=== PATIENT | female | born 1935 | race Caucasian/White ===

== ENCOUNTER → 2016-07-01 | Outpatient (CLI) | payer BC ==
[~2016-07-01] MED LIST: APIX1TAB PO; ASPCH81X PO; BNC/20125 PO; CALCIUM + D600 M1 PO; CALCTAB7 PO; CARV6.25 PO; CLBPO15 TOP; CRD200 PO; FISH OI1 OR; FLEC50TA20 PO; FURO-85 PO; LEVO75TA PO; LRT5 PO; METO25TA3 OR; MULT-513 PO; OMEP40CA41 OR; PRED-301 PO; PRLSR20 PO; SYN75 PO; ZOLE5INJ INJ; [UNRECOGNIZED DRUG - OTHER] PO
== END | disposition home or self-care (01) ==
LOC: C.PAPS 09:39
PROVIDERS: ATTEND Obstetrics & Gynecology
DX: Z01.419 Encounter for gynecological examination (general) (routine) without abnormal findings (principal); N95.2 Postmenopausal atrophic vaginitis

== ENCOUNTER 2016-09-24 20:54 | Inpatient (IN) | payer BC, OTHER ==
[~2016-09-24] VITALS: Ht 149.9 cm; Wt 55.6 kg
[~2016-09-24 20:54] MED LIST changes: -APIX1TAB PO; -CALCTAB7 PO; -CARV6.25 PO; -CLBPO15 TOP; -CRD200 PO; -FURO-85 PO; -LEVO75TA PO; -MULT-513 PO; -PRED-301 PO; -PRLSR20 PO; -ZOLE5INJ INJ
[2016-09-24] MEDS ORDERED: SODIUM CHLORIDE 0.9% 500ML 500 ML IV STA ×2 (21:19→21:49)
[2016-09-24] MEDS ORDERED: METOPROLOL TARTRATE 1 MG/ML VIAL IV STA (21:19)
--- NOTE | 2016-09-24 21:45 | DIAGNOSTIC IMAGING REPORT ---
CHEST ONE VIEW PORTABLE CLINICAL HISTORY: Atypical chest pain COMPARISON STUDY: November 2013 FINDINGS: There is borderline elevation right hemidiaphragm. The heart is normal in size. There is no failure. There is no focal pulmonary consolidation. There are no pleural effusions.[ IMPRESSION: No active disease in the chest. Electronically signed by: Heri Burnham M.D. 09/24/2016 9:44 PM Dictated Date/Time: 09/24/2016 9:43 PM
[2016-09-24 21:50] LABS: BUN/CREATININE RATIO 16.8 (10-20); CREATININE 1.5 mg/dl (0.60-1.20); MAGNESIUM 2.3 mg/dl (1.8-2.4); POTASSIUM 4.1 mmol/L (3.5-5.1)
[2016-09-24 22:00] LABS: ALB/GLOB RATIO 1.3 (0.9-2); CKMB/CK RATIO 4.9 (0-3.0); THYROID STIMULATING HORMONE 2.81 uIu/ml (0.300-4.500)
[2016-09-24] MEDS ORDERED: CLBPO15 TOP (22:03)
[2016-09-24] MEDS ORDERED: CALCTAB7 PO (22:03)
[2016-09-24] MEDS ORDERED: LEVO75TA PO (22:03)
[2016-09-24] MEDS ORDERED: PRLSR20 PO (22:03)
[2016-09-24] MEDS ORDERED: FURO-85 PO ×2 (22:03)
[2016-09-24] MEDS ORDERED: PRED-301 PO (22:03)
[2016-09-24] MEDS ORDERED: APIX1TAB PO (22:03)
[2016-09-24] MEDS ORDERED: ZOLE5INJ INJ (22:03)
[2016-09-24] MEDS ORDERED: MULT-513 PO (22:03)
[2016-09-24] MEDS ORDERED: CARV6.25 PO (22:03)
[2016-09-24 22:08] LABS: INR 1.1 (0.9-1.1); PROTHROMBIN TIME (PATIENT) 11.5 SECONDS (9.0-12.0)
[2016-09-24 22:33] LABS: HEMATOCRIT 38.7 % (37-47); MEAN CELL VOLUME 91.3 fL (80-100); MEAN CORPUSCULAR HEMOGLOBIN 31.4 pg (25-34); MEAN CORPUSCULAR HGB CONC 34.4 g/dl (32-36); MEAN PLATELET VOLUME 11.1 fL (7.4-10.4); PLATELET COUNT 99 K/uL (130-400); RED BLOOD COUNT 4.24 M/uL (4.2-5.4); WHITE BLOOD COUNT 5.62 K/uL (4.8-10.8)
[2016-09-24] MEDS ORDERED: ONDANSETRON INJ 2 MG/ML 2 ML VIAL IV PRN (23:30)
--- NOTE | 2016-09-24 23:49 | EMERGENCY ROOM VISIT NOTE ---
History Report prepared by Verna: Claudia Camacho Under the Supervision of: Dr. Figueroa Mayfield M.D. First contact with patient: 21:12 Chief Complaint: IRREGULAR HEARTBEAT Stated Complaint: AFIB,LOSING IT History of Present Illness The patient is a 81 year old female who presents to the Emergency Room with complaints of an episode of an irregular heartbeat starting this evening. The patient states that she felt that her heart beats really fast and that it comes in waves. She states that she is not having chest pain, but her chest feels uncomfortable. She states that she felt like she was going to pass out. The patient denies any back pain. The patient notes that she was going to have her heart be shocked about two months ago, but it went back in before they had to. The patient reports that she is feeling better now that she is here. The patient denies any heart catheterization or taking Aspirin. The patient states that she is in Eliquis. Source of History: patient Onset: evening Position: other (global) Quality: other (global) Timing: other (episode) Associated Symptoms: No back pain, No chest pain Note: The patient complains of uncomfortableness in her chest. Review of Systems See HPI for pertinent positives & negatives. A total of 10 systems reviewed and were otherwise negative. Past Medical & Surgical Medical Problems: (1) Atrial fibrillation Family History No pertinent family history Social History Smoking Status: Never Smoker Drug Use: none Marital Status: Occupation Status: retired Current/Historical Medications Scheduled Apixaban (Eliquis), 2.5 MG PO BID Calcium Carbonate-Vitamin D W/ (Caltrate 600 Plus), 1 TAB PO DAILY Carvedilol (Coreg), 6.25 MG PO BID Clobetasol Propionate (Clobetasol Propionate), 1 APPLN TOP UD Furosemide (Lasix), 40 MG PO MWF Furosemide (Lasix), 20 MG PO 4XWK Levothyroxine Sodium (Synthroid), 75 MCG PO DAILY Multivitamins/Minerals (Mvi With Minerals), 1 TAB PO DAILY Omeprazole (Prilosec), 20 MG PO DAILY Prednisone (Prednisone), 10 MG PO Q2D Prednisone (Prednisone), 7.5 MG PO Q2D Zoledronic Acid (Reclast), 1 DOSE INJ YEARLY Allergies Coded Allergies: Iodinated Contrast Media (Verified Allergy, Unknown, 0, 08/28/09) Sulfa Drugs (Verified Allergy, Unknown, 0, 08/28/09) Physical Exam Vital Signs Date Time Temp Pulse Resp B/P Pulse Ox O2 Delivery O2 Flow Rate FiO2 09/24/16 23:15 66 20 101/72 93 Room Air 09/24/16 22:46 62 16 141/77 95 Room Air 09/24/16 22:27 116 141/67 09/24/16 22:24 119 16 141/67 94 Room Air 09/24/16 22:09 116 16 133/72 95 Room Air 09/24/16 21:59 69 16 103/73 95 Room Air 09/24/16 21:45 123 21 95 09/24/16 21:43 88/65 09/24/16 21:40 77 17 138/73 09/24/16 21:37 94 Room Air 09/24/16 21:35 94 Room Air 09/24/16 21:35 136 19 92 09/24/16 21:30 141 19 99/78 93 09/24/16 21:27 103/71 09/24/16 21:25 145 17 09/24/16 21:20 140 16 09/24/16 21:15 143 09/24/16 21:02 36.3 144 16 115/83 98 Room Air Physical Exam GENERAL: Patient is mildly anxious appearing and in minimal distress. HEENT: No acute trauma, normocephalic atraumatic, mucous membranes moist, no nasal congestion, no scleral icterus. NECK: No stridor, no adenopathy, no meningismus, trachea is midline. LUNGS: No dyspnea. Clear to auscultation and equal bilaterally. No wheeze, no rhonchi. HEART: Regular rate and tachycardic rhythm. No murmurs, rubs, gallops appreciated. ABDOMEN: Soft, nontender, bowel sounds positive, no masses appreciated, no peritonitis. BACK: No midline tenderness, no CVA tenderness EXTREMITIES: Normal motion all extremities, no cyanosis, +1 edema bilaterally in ankles. NEUROLOGIC: Alert and oriented, no acute motor or sensory deficits, no focal weakness, cranial nerves grossly intact. SKIN: No rash, no jaundice, no diaphoresis. Medical Decision & Procedures ER Provider Diagnostic Interpretation: Radiology results and stated below per my review and radiologist interpretation: CHEST ONE VIEW PORTABLE CLINICAL HISTORY: Atypical chest pain COMPARISON STUDY: November 2013 FINDINGS: There is borderline elevation right hemidiaphragm. The heart is normal in size. There is no failure. There is no focal pulmonary consolidation. There are no pleural effusions.[ IMPRESSION: No active disease in the chest. Electronically signed by: Heri Burnham M.D. 09/24/2016 9:44 PM Dictated Date/Time: 09/24/2016 9:43 PM Laboratory Results 09/24/16 21:15 09/24/16 21:15 Test 09/24/16 21:15 09/24/16 21:50 09/24/16 23:27 Red Blood Count 4.24 M/uL (4.2-5.4) Mean Corpuscular Volume 91.3 fL (80-100) Mean Corpuscular Hemoglobin 31.4 pg (25-34) Mean Corpuscular Hemoglobin Concent 34.4 g/dl (32-36) RDW Standard Deviation 56.5 fL (36.4-46.3) RDW Coefficient of Variation 16.9 % (11.5-14.5) Mean Platelet Volume 11.1 fL (7.4-10.4) Anion Gap 7.0 mmol/L (3-11) Est Creatinine Clear Calc Drug Dose 22.5 ml/min Estimated GFR () 38.0 Estimated GFR (Non- 32.8 BUN/Creatinine Ratio 16.8 (10-20) Calcium Level 9.0 mg/dl (8.5-10.1) Magnesium Level 2.3 mg/dl (1.8-2.4) Total Bilirubin 0.5 mg/dl (0.2-1) Aspartate Amino Transf (AST/SGOT) 37 U/L (15-37) Alanine Aminotransferase (ALT/SGPT) 39 U/L (12-78) Alkaline Phosphatase 45 U/L (45-117) Total Protein 6.6 gm/dl (6.4-8.2) Albumin 3.7 gm/dl (3.4-5.0) Globulin 2.9 gm/dl (2.5-4.0) Albumin/Globulin Ratio 1.3 (0.9-2) Thyroid Stimulating Hormone (TSH) 2.810 uIu/ml (0.300-4.500) Prothrombin Time 11.5 SECONDS (9.0-12.0) Prothromb Time International Ratio 1.1 (0.9-1.1) Activated Partial Thromboplast Time 25.5 SECONDS (21.0-31.0) Partial Thromboplastin Ratio 1.0 Creatine Kinase MB Ratio (0-3.0) Laboratory results as reviewed by me. Medications Administered Medications (Trade) Dose Ordered Sig/Dawn Route Start Time Stop Time Status Last Admin Dose Admin Sodium Chloride (Nss 500ml) 500 ml @ 999 mls/hr Q31M STAT IV 09/24/16 21:19 09/24/16 21:49 DC 09/24/16 21:30 999 MLS/HR Metoprolol Tartrate 5 mg 5 mg NOW STAT IV 09/24/16 21:19 09/24/16 21:21 DC 09/24/16 22:27 5 MG Sodium Chloride (Nss 500ml) 500 ml @ 999 mls/hr Q31M STAT IV 09/24/16 21:49 09/24/16 22:19 DC 09/24/16 22:27 999 MLS/HR ECG Indication: palpitations Rate (beats per minute): 142 Rhythm: atrial flutter Findings: no acute ischemic change, other (no PVCs) ED Course 2020: The patient was evaluated in room C7. A complete history and physical exam was performed. 2118: Ordered Lopressor Iv 5 mg IV, NSS 500 ml @ 999 mls/hr IV. 2147: I revaluated the patient and the patient's blood pressure dropped to 88/ 60. I am giving her Ebulus of fluid. 2148: Ordered NSS 500 ml @ 999mls/hr IV. 2223: Discussed the patient's case Dr. Frank. The patient will be evaluated for further treatment and disposition. Medical Decision Differential: NSR, SVT, PACs, PVCs, Cardiac Dysrhythmia, Endocrine Dysfunction, Electrolyte/Metabolic Abnormality, Pulmonary Embolism, Infectious, GI, amongst other pathologies entertained. Pleasant 81 yr old female arrives tachycardic and hypotensive following near syncopal event. Notes feeling run down currently though denies any chest pain, shob, back pain, nausea, vomiting, nor further lightheadedness. Denies any headache nor neck pain during any of this. Given IV fluids with improvement of BP after 500ml-1L NSS bolus. With improvement in BP able to given IV lopressor. She is rapidly flipping in and out of what appears to be NSR with 1st av block to tachycardia which appears to be AFlutter RVR. There are definitively EKG change inferior-laterally which appear new. Completely asymptomatic with IV fluids. She does have mild ST elevation in III on one of the EKGs though without any symptoms I do not feel this meets criteria for heart alert nor emergent intervention. This elevation already improving on repeat EKG though some lateral t changes noted again. Already on Eliquis thus will defer heparin decision to hospitalist. Labs OK though suspect some underlying dehydration. Will bring in to hospitalist service for further management/treatment. With eliquis and symptoms I do not feel this is PE related. No symptoms of dissection currently. No evidence infectious etiology at this time. Consults Time Called: 2220 Consulting Physician: Dr. Frank Returned Call: [phone] Discussed the patient's case Dr. Frank. The patient will be evaluated for further treatment and disposition. Impression Primary Impression: Atrial flutter with rapid ventricular response Additional Impression: Hypotension Scribe Attestation The scribe's documentation has been prepared under my direction and personally reviewed by me in its entirety. I confirm that the note above accurately reflects all work, treatment, procedures, and medical decision making performed by me. Departure Information Dispostion Being Evaluated By Hospitalist Referrals Luther Hu DO (PCP) Patient Instructions My [facility] Problem Qualifiers Additional Impression: Hypotension Hypotension type: unspecified hypotension type Qualified Codes: I95.9 - Hypotension, unspecified
[2016-09-25] VITALS (8 sets, daily range): BP systolic 122–175; BP diastolic 66–82; PULSE 49–76; TEMP 36.5–37; O2SAT 94–97; Ht 149.9 cm; Wt 55.6 kg
[2016-09-25] MEDS ORDERED: METOPROLOL TARTRATE 1 MG/ML VIAL IV PRN (00:30)
[2016-09-25] MEDS ORDERED: ACETAMINOPHEN 325 MG TAB PO PRN (00:30)
[2016-09-25] MEDS ORDERED: NITROGLYCERIN 0.4 MG SL PER TAB CHARGE SL PRN (00:30)
[2016-09-25] MEDS ORDERED: CLOBETASOL PROPIONATE 0.05% OINT 15 GM TUBE EXT PRN (00:30)
[2016-09-25] MEDS ORDERED: HEPARIN 25000 UNIT/500 ML D5W ONE (00:36)
[2016-09-25] MEDS: SODIUM CHLORIDE 0.9% 1000ML 1,000 ML IV SCH ×2 (01:45→14:24)
[2016-09-25] MEDS ORDERED: HEPARIN 25,000 UNIT/500ML D5W 500 ML IV PRN (01:45)
--- NOTE | 2016-09-25 04:40 | History and Physical ---
History & Physical Date & Time of Service: September 25, 2016 at 04:16. The patient was examined on 09/24/2016. Chief Complaint: Acs, Sinus Brachycardia-Tachycardia Syndrome Primary Care Physician: Oswaldo Mari M.D. History of Present Illness Source: patient, spouse The patient is a 81-year-old female who presents to the emergency department with complaints of palpitations accompanied by lightheadedness and nausea. She and her report that her symptoms began about 1 1/2 weeks ago, when the palpitations were of brief duration and isolated. As the time progressed since then, her palpitations have become more pronounced in both frequency and intensity, in particular over the past 24-36 hours, and are now accompanied by lightheadedness and nausea. She reports that her symptoms come in waves, where her heart rate will speed up for a while, and then slow back down to a normal pace. She feels better lying down when these symptoms occur. She has not had any recent travels, any sick exposures, any change in diet, any change in sleep pattern. She does have a history of atrial fibrillation, for which she is on Eliquis, but her symptoms have never been this severe. Family History No pertinent family history Social History Smoking Status: Never Smoker Smokeless Tobacco Use: No Alcohol Use: none Drug Use: none Marital Status: Housing status: lives with family Occupational Status: retired Immunizations History of Influenza Vaccine: Yes History of Tetanus Vaccine?: Yes Tetanus Immunization Date: Aug 28, 2006 History of Pneumococcal: Yes History of Hepatitis B Vaccine: Unknown Multi-Drug Resistant Organisms History of MDRO: No Allergies Coded Allergies: Iodinated Contrast Media (Verified Allergy, Unknown, 0, 08/28/09) Sulfa Drugs (Verified Allergy, Unknown, 0, 08/28/09) Home Medications Scheduled Apixaban (Eliquis), 2.5 MG PO BID Calcium Carbonate-Vitamin D W/ (Caltrate 600 Plus), 1 TAB PO DAILY Carvedilol (Coreg), 6.25 MG PO BID Clobetasol Propionate (Clobetasol Propionate), 1 APPLN TOP UD Furosemide (Lasix), 40 MG PO MWF Furosemide (Lasix), 20 MG PO 4XWK Levothyroxine Sodium (Synthroid), 75 MCG PO DAILY Multivitamins/Minerals (Mvi With Minerals), 1 TAB PO DAILY Omeprazole (Prilosec), 20 MG PO DAILY Prednisone (Prednisone), 10 MG PO Q2D Prednisone (Prednisone), 7.5 MG PO Q2D Zoledronic Acid (Reclast), 1 DOSE INJ YEARLY Review of Systems The patient denies shortness of breath, cough, lower extremity swelling, vision change, hearing change, sore throat, fevers, chills, sweats, weight change, fatigue, vomiting, abdominal pain, pelvic pain, blood in urine or stool, dysuria , urinary frequency or urgency, lightheadedness, dizziness, headache, memory loss, rash, abnormal bruising or bleeding, imbalance, focal weakness, numbness or tingling in arms or legs, arthralgias or myalgias, back or neck pain, night sweats, or allergy symptoms. The review of systems is otherwise negative other than for that already noted above, and at least 10 systems have been reviewed. Physical Exam Vital Signs Date Time Temp Pulse Resp B/P Pulse Ox O2 Delivery O2 Flow Rate FiO2 09/25/16 03:59 36.7 57 18 138/73 94 Room Air 09/25/16 01:06 36.5 60 18 175/82 Room Air 09/25/16 00:30 121 18 98/67 95 Room Air 09/24/16 23:55 114 19 93 09/24/16 23:54 107/76 09/24/16 23:50 112 16 92 09/24/16 23:46 80/60 09/24/16 23:45 65 13 92 09/24/16 23:40 125 16 95 09/24/16 23:35 124 15 92 09/24/16 23:31 83/63 09/24/16 23:30 127 17 94 09/24/16 23:25 67 16 92 09/24/16 23:20 64 18 94 09/24/16 23:16 101/72 09/24/16 23:15 69 16 94 09/24/16 23:15 66 20 101/72 93 Room Air 09/24/16 23:10 124 17 92 09/24/16 23:05 129 17 93 09/24/16 23:01 115/62 09/24/16 23:00 64 17 93 09/24/16 22:57 128/75 09/24/16 22:55 65 15 93 09/24/16 22:50 64 15 94 09/24/16 22:46 141/77 09/24/16 22:46 62 16 141/77 95 Room Air 09/24/16 22:45 63 19 95 09/24/16 22:40 66 18 141/68 09/24/16 22:30 129 21 92 09/24/16 22:27 116 141/67 09/24/16 22:25 74 15 96 09/24/16 22:24 119 16 141/67 94 Room Air 09/24/16 22:20 114 17 94 09/24/16 22:16 141/67 09/24/16 22:15 71 16 95 09/24/16 22:10 130 15 94 09/24/16 22:09 116 16 133/72 95 Room Air 09/24/16 22:09 133/72 09/24/16 22:05 93 17 94 09/24/16 22:01 103/73 09/24/16 22:00 70 16 93 09/24/16 21:59 69 16 103/73 95 Room Air 09/24/16 21:55 69 19 09/24/16 21:51 156/77 09/24/16 21:50 110 20 96 09/24/16 21:45 123 21 95 09/24/16 21:43 88/65 09/24/16 21:40 77 17 138/73 09/24/16 21:37 94 Room Air 09/24/16 21:35 94 Room Air 09/24/16 21:35 136 19 92 09/24/16 21:30 141 19 99/78 93 09/24/16 21:27 103/71 09/24/16 21:25 145 17 09/24/16 21:20 140 16 09/24/16 21:15 143 09/24/16 21:02 36.3 144 16 115/83 98 Room Air The patient is awake, well-developed and adequately nourished, alert and oriented 3, normocephalic and atraumatic, lying in bed and in mild acute distress during episodes of increased heart rate while in the ED. HEENT--PERRL, EOMI, mucous membranes and oropharynx dry. Neck--supple, no JVD or bruits, thyroid normal, trachea midline, no adenopathy. Heart--cyclical examination from normal sinus rhythm to premature contractions to tachycardia with regular rhythm. Lungs--clear bilaterally with good air movement, no respiratory distress, no accessory muscle use. Abdomen--normal bowel sounds and soft, nontender and nondistended, no hernias or masses, no organomegaly. Extremities--no cyanosis, clubbing or edema. There are good distal pulses b/l. Dermatologic--normal skin turgor, normal color, warm and dry, no abnormal lymph nodes, no rash. Neurologic--cranial nerves II through XII grossly intact, motor and sensory examination normal. Rheumatologic--normal range of motion, nontender, muscles and joints. Psychiatric--normal affect. Diagnostics Laboratory Results Results Past 24 Hours Test 09/24/16 21:15 09/24/16 21:50 09/24/16 23:50 Range/Units White Blood Count 5.62 4.8-10.8 K/uL Red Blood Count 4.24 4.2-5.4 M/uL Hemoglobin 13.3 12.0-16.0 g/dL Hematocrit 38.7 37-47 % Mean Corpuscular Volume 91.3 80-100 fL Mean Corpuscular Hemoglobin 31.4 25-34 pg Mean Corpuscular Hemoglobin Concent 34.4 32-36 g/dl RDW Standard Deviation 56.5 36.4-46.3 fL RDW Coefficient of Variation 16.9 11.5-14.5 % Platelet Count 99 130-400 K/uL Mean Platelet Volume 11.1 7.4-10.4 fL Sodium Level 135 136-145 mmol/L Potassium Level 4.1 3.5-5.1 mmol/L Chloride Level 95 98-107 mmol/L Carbon Dioxide Level 33 21-32 mmol/L Anion Gap 7.0 3-11 mmol/L Blood Urea Nitrogen 25 7-18 mg/dl Creatinine 1.50 0.60-1.20 mg/dl Est Creatinine Clear Calc Drug Dose 22.5 ml/min Estimated GFR () 38.0 Estimated GFR (Non- 32.8 BUN/Creatinine Ratio 16.8 10-20 Random Glucose 137 70-99 mg/dl Calcium Level 9.0 8.5-10.1 mg/dl Magnesium Level 2.3 1.8-2.4 mg/dl Total Bilirubin 0.5 0.2-1 mg/dl Aspartate Amino Transf (AST/SGOT) 37 15-37 U/L Alanine Aminotransferase (ALT/SGPT) 39 12-78 U/L Alkaline Phosphatase 45 45-117 U/L Total Creatine Kinase 99 70 26-192 U/L Creatine Kinase MB 4.9 3.5 0.5-3.6 ng/ml Creatine Kinase MB Ratio 4.9 5.0 0-3.0 Troponin I 0.029 0.050 0-0.045 ng/ml Total Protein 6.6 6.4-8.2 gm/dl Albumin 3.7 3.4-5.0 gm/dl Globulin 2.9 2.5-4.0 gm/dl Albumin/Globulin Ratio 1.3 0.9-2 Thyroid Stimulating Hormone (TSH) 2.810 0.300-4.500 uIu/ml Prothrombin Time 11.5 9.0-12.0 SECONDS Prothromb Time International Ratio 1.1 0.9-1.1 Activated Partial Thromboplast Time 25.5 21.0-31.0 SECONDS Partial Thromboplastin Ratio 1.0 Diagnostic Radiology Patient Name: AJ CORDERO Unit Number: [id number] Dictated: 09/24/162142 Transcribed: 09/24/162142 ARG Printed Date/Time: [~ rep prt dt]/[~ rep prt tm] [~ rep ct labl] - [~ rep ct ivnm] [facility] [place] [address] Dictated: 09/24/162142 Transcribed: 09/24/162142 ARG Printed Date/Time: [~ rep prt dt]/[~ rep prt tm] [~ rep ct labl] - [~ rep ct ivnm] CHEST ONE VIEW PORTABLE CLINICAL HISTORY: Atypical chest pain COMPARISON STUDY: November 2013 FINDINGS: There is borderline elevation right hemidiaphragm. The heart is normal in size. There is no failure. There is no focal pulmonary consolidation. There are no pleural effusions.[ IMPRESSION: No active disease in the chest. Electronically signed by: Heri Burnham M.D. 09/24/2016 9:44 PM Dictated Date/Time: 09/24/2016 9:43 PM The status of this report is Signed. Draft = Not yet reviewed or approved by Radiologist. Signed = Reviewed and approved by Radiologist. <AttendingPhy></AttendingPhy> <FamilyPhy>Luther Hu, </FamilyPhy> < PrimaryPhy>Oswaldo Mari M.D.</PrimaryPhy> <UnitNumber>[id number]</ UnitNumber> <VisitNumber>[id number]</VisitNumber> <PatientName>AJ CORDERO</ PatientName> <DateOfBirth>1935</DateOfBirth> <Location>[facility]</Location> < ServiceDate>09/24/16</ServiceDate> <MNE>ESINDI</MNE> <OrderingPhy>No Doctor, Assigned</OrderingPhy> <OrderingPhyMNE>f rep ord dr vasquez</OrderingPhyMNE> < DictatingPhyMNE>f rep dict dr vasquez</DictatingPhyMNE> <CCListMNE>f rep ct rebekahe</ CCListMNE> <AdmittingPhyMNE>f pt admit dr vasquez</AdmittingPhyMNE> <AttendingPhyMNE >f pt attend dr vasquez</AttendingPhyMNE> <ConsultingPhyMNE>f pt consult dr vasquez</ConsultingPhyMNE> <FamilyPhyMNE>f pt fam dr vasquez</FamilyPhyMNE> <OtherPhyMNE>f pt other dr vasquez</OtherPhyMNE> < PrimaryPhyMNE>f pt prim care dr vasquez</PrimaryPhyMNE> <ReferringPhyMNE>f pt referring dr vasquez</ReferringPhyMNE> EKG EKG #1 shows sinus tachycardia at 150 bpm, with no acute ST-T changes. EKG #2 shows normal sinus rhythm at 80 bpm, with ST elevation 1 mm in lead III, and 1/2 mm in aVF, and trace elevation in V5 and V6. EKG #3 shows normal sinus rhythm at 66 bpm, with the same ST elevations, and now shows reciprocal ST segment depression and T-wave inversion in leads I and aVL. Impression Assessment and Plan Acute coronary syndrome/tachybradycardia syndrome--the patient will be admitted to the telemetry unit for serial cardiac enzymes, cardiac rhythm monitoring and a 2-D echocardiogram with Dopplers. We will hold Eliquis 2.5 mg by mouth twice a day, and start heparin IV standard dose per protocol. Continue carvedilol 6.25 mg by mouth twice a day, hold furosemide, and gently hydrate with normal saline IV fluid. We'll consult cardiology, and would be concerned about possible RCA occlusion causing these symptoms. Her initial troponin was nondetectable. We did discuss tachybradycardia syndrome, and possible need for a pacemaker. Acute Renal insufficiency--creatinine was 1.5 on admission laboratories. Hold furosemide. We'll hydrate with normal saline at 80 ML's per hour, and repeat BMP and magnesium levels in the a.m. Thrombocytopenia--99 upon admission. Her platelets will need to be followed closely while on treatment. Hyperglycemia--blood sugar was 137 on admission. We'll check a hemoglobin A1c. GERD--change omeprazole 20 mg by mouth daily to pantoprazole 40 mg by mouth daily. Hypothyroidism--continue levothyroxine sodium at 75 g by mouth daily. Chronic Prednisone use--she has been taking 10 mg alternating with 7.5 mg. For now, we'll place on 10 mg by mouth twice a day for stress dose. Level of Care Telemetry Advanced Directives Existing Advance Directive: No Existing Living Will: No Existing Power of Cold Working Inspector: Yes Resuscitation Status FULL RESUSCITATION VTE Prophylaxis VTE Risk Assessment Done? Y/N: Yes Risk Level: Moderate Given or contraindicated: Other Anticoagulation (heparin IV standard dose per weight-based protocol.)
[2016-09-25] MEDS: LEVOTHYROXINE 75 MCG TAB PO SCH (06:20)
[2016-09-25 06:28] LABS: HEMATOCRIT 34.9 % (37-47); MEAN CELL VOLUME 91.8 fL (80-100); MEAN CORPUSCULAR HEMOGLOBIN 30.5 pg (25-34); MEAN CORPUSCULAR HGB CONC 33.2 g/dl (32-36); WHITE BLOOD COUNT 3.46 K/uL (4.8-10.8)
[2016-09-25 06:44] LABS: MEAN PLATELET VOLUME 11.4 fL (7.4-10.4); PLATELET COUNT 75 K/uL (130-400)
[2016-09-25 06:45] LABS: INR 1.1 (0.9-1.1); PARTIAL THROMBOPLASTIN RATIO 2.3; PROTHROMBIN TIME (PATIENT) 11.7 SECONDS (9.0-12.0)
[2016-09-25 06:52] LABS: BASO % 0.3 %; BASO ABS # 0.01 K/uL (0-0.2); COMPLETE YES; EOS % 0.9 %; LYMPH % 30.6 %; LYMPH ABS # 1.06 K/uL (1.2-3.4); MONO % 10.4 %; NEUT % 57.8 %
[2016-09-25 07:06] LABS: CKMB/CK RATIO 4.9 (0-3.0)
[2016-09-25 07:08] LABS: BUN/CREATININE RATIO 20.2 (10-20); CALCIUM 7.6 mg/dl (8.5-10.1); CREATININE 1.2 mg/dl (0.60-1.20); MAGNESIUM 2.2 mg/dl (1.8-2.4); POTASSIUM 3.7 mmol/L (3.5-5.1)
[2016-09-25 08:24] LABS: ESTIMATED AVERAGE GLUCOSE 123 mg/dl; HA1C FLAG Normal (Normal)
--- NOTE | 2016-09-25 08:31 | ECHOCARDIOGRAM REPORT ---
*NOTICE TO RECEIVING CONSTITUTION PARTY AGENCY This information is strictly Confidential and protected under [place] law. [place] law prohibits you from making any further disclosure of this information unless further disclosure is expressly permitted by the written consent of the person to whom it pertains or is authorized by law. A general authorization for the release of medical or other information is not sufficient for this purpose. Hospital accepts no responsibility if the information is made available to any other person, INCLUDING THE PATIENT. Interpretation Summary * Name: AJ CORDERO Study Date: 09/25/2016 06:25 AM BP: 138/73 mmHg * Patient Location: C.2E\S\E211\S\1 HR: 48 * : 1935 (M/d/yyyy) Gender: Female Height: 59 in * Age: 81 yrs Ethnicity: CA Weight: 115 lb * Ordering Physician: Naeem Frank * Referring Physician: Self, Referred * Performed By: Audra Oliva RCS * * Reason For Study: ELEVATED TROPONIN * BSA: 1.5 m2 * -- Conclusions -- * The left ventricle is grossly normal size. * There is mild concentric left ventricular hypertrophy. * The basal septum is thickened and angulated consistent with sigmoid septum. * Prominent and thick Papillary muscle. * The left ventricular wall motion is normal. * The right ventricle is normal in size and function. * The right ventricular systolic function is normal as assessed by tricuspid annular plane systolic excursion (TAPSE) (normal >1.5 cm). * The left atrium is moderately dilated. * The aortic valve is trileaflet. * Mild aortic regurgitation. * Diastolic dysfunction, Grade II (pseudonormalization pattern). * E to e' ratio =15 Procedure Details * A complete two-dimensional transthoracic echocardiogram was performed (2D, M-mode, Doppler and color flow Doppler). Left Ventricle * The left ventricle is grossly normal size. * There is mild concentric left ventricular hypertrophy. * The basal septum is thickened and angulated consistent with sigmoid septum. * Ejection Fraction = 50-55%. * Prominent and thick Papillary muscle. * The left ventricular wall motion is normal. Right Ventricle * The right ventricle is normal in size and function. * The right ventricular systolic function is normal as assessed by tricuspid annular plane systolic excursion (TAPSE) (normal >1.5 cm). Atria * The left atrium is moderately dilated. * Right atrial size is normal. Mitral Valve * The mitral valve is grossly normal. * There is mild mitral regurgitation. Tricuspid Valve * The tricuspid valve is not well visualized, but is grossly normal. * There is mild tricuspid regurgitation. * Right ventricular systolic pressure is normal. Aortic Valve * The aortic valve is trileaflet. * Mild aortic regurgitation. Pulmonic Valve * The pulmonic valve is not well seen, but is grossly normal. * Mild pulmonic valvular regurgitation. * Normal PA diastolic pressure Great Vessels * The aortic root is normal size. Pericardium/Pleural * There is no pericardial effusion. Great Vessels * Normal inferior vena cava size and collapsability with sniff indicates a normal right atrial pressure of 3 mmHg Left Ventricular Diastolic Function * Diastolic dysfunction, Grade II (pseudonormalization pattern). * E to e' ratio =15 MMode 2D Measurements and Calculations IVSd 1.3 cm IVSs 1.7 cm LVIDd 3.8 cm LVIDs 2.4 cm LVPWd 0.94 cm LVPWs 1.1 cm IVS/LVPW 1.4 FS 38.3 % EDV(Teich) 63.9 ml ESV(Teich) 19.6 ml EF(Teich) 69.2 % EDV(cubed) 57.0 ml ESV(cubed) 13.4 ml EF(cubed) 76.5 % % IVS thick 29.5 % % LVPW thick 11.9 % LV mass(C)d 141.8 grams LV mass(C)dI 97.3 grams/m\S\2 LV mass(C)s 101.2 grams LV mass(C)sI 69.4 grams/m\S\2 SV(Teich) 44.2 ml SI(Teich) 30.3 ml/m\S\2 SV(cubed) 43.6 ml SI(cubed) 29.9 ml/m\S\2 Ao root diam 3.5 cm Ao root area 9.8 cm\S\2 LA dimension 3.2 cm LA/Ao 0.91 LVOT diam 2.0 cm LVOT area 3.3 cm\S\2 LVAd ap4 25.0 cm\S\2 LVLd ap4 6.9 cm EDV(MOD-sp4) 74.8 ml EDV(sp4-el) 77.3 ml LVAs ap4 14.9 cm\S\2 LVLs ap4 5.6 cm ESV(MOD-sp4) 33.5 ml ESV(sp4-el) 33.4 ml EF(MOD-sp4) 55.2 % EF(sp4-el) 56.9 % LVAd ap2 21.1 cm\S\2 LVLd ap2 6.7 cm EDV(MOD-sp2) 54.1 ml EDV(sp2-el) 55.9 ml LVAs ap2 14.0 cm\S\2 LVLs ap2 6.0 cm ESV(MOD-sp2) 26.8 ml ESV(sp2-el) 27.7 ml EF(MOD-sp2) 50.4 % EF(sp2-el) 50.5 % LVLd %diff -2.05 % EDV(MOD-bp) 64.0 ml LVLs %diff 5.7 % ESV(MOD-bp) 30.9 ml EF(MOD-bp) 51.7 % SV(MOD-sp4) 41.3 ml SI(MOD-sp4) 28.3 ml/m\S\2 SV(MOD-sp2) 27.3 ml SI(MOD-sp2) 18.7 ml/m\S\2 SV(MOD-bp) 33.1 ml SI(MOD-bp) 22.7 ml/m\S\2 SV(sp4-el) 44.0 ml SI(sp4-el) 30.2 ml/m\S\2 SV(sp2-el) 28.2 ml SI(sp2-el) 19.4 ml/m\S\2 Doppler Measurements and Calculations MV E max anne marie 93.3 cm/sec MV A max anne marie 86.8 cm/sec MV E/A 1.1 MV P1/2t max anne marie 101.1 cm/sec MV P1/2t 91.7 msec MVA(P1/2t) 2.4 cm\S\2 MV dec slope 322.9 cm/sec\S\2 MV dec time 0.25 sec Ao V2 max 77.0 cm/sec Ao max PG 2.4 mmHg Ao max PG (full) 0.35 mmHg TISH(V,A) 3.0 cm\S\2 TISH(V,D) 3.0 cm\S\2 AI max anne marie 401.4 cm/sec AI max PG 64.4 mmHg AI dec slope 154.7 cm/sec\S\2 AI P1/2t 759.9 msec LV V1 max PG 2.0 mmHg LV V1 max 71.2 cm/sec PA V2 max 55.9 cm/sec PA max PG 1.2 mmHg PI max anne marie 139.6 cm/sec PI max PG 7.8 mmHg PI dec slope 100.6 cm/sec\S\2 PI P1/2t 406.6 msec TR max anne marie 243.3 cm/sec
[2016-09-25] MEDS ORDERED: AMIODARONE IV BOLUS / DRIP IV STA (08:46)
[2016-09-25] MEDS ORDERED: CARVEDILOL 6.25 MG TAB PO SCH (09:00)
[2016-09-25] MEDS ORDERED: AMIODARONE / D5W 100 ML IV SCH (09:00)
[2016-09-25] MEDS ORDERED: AMIODARONE / D5W 200 ML IV ONE (09:10)
--- NOTE | 2016-09-25 09:38 | CARDIOLOGY CONSULTATION ---
DATE OF CONSULTATION: 09/25/2016 DATE OF CONSULTATION: 09/25/2016. REQUESTING: Dr. Frank. [employer]OT[employer] DINING ROOM CASHIER: Luther Hu D.O, [facility] Cardiology. REASON FOR CONSULTATION: Recurrent atrial arrhythmias including atrial fibrillation as well as an atrial fibrillation and atrial tachycardia. Dear Dr. Frank: Thank you for requesting cardiology consultation on Latonya with regards to her current atrial arrhythmias. She has had a history of atrial arrhythmias including an atrial tachycardia as well as atrial fibrillation. During our last visit on 08/29/2016 she was in atrial fibrillation with a controlled ventricular response and was relatively asymptomatic. We made a decision at that point for rate control strategy. She notes over the last week to 10 days she has had worsening palpitations, feeling her heart racing. It would last for brief episodes, although in the last 24-48 hours it was lasting longer and longer and with the episode she was having lightheadedness, dizziness, weakness and fatigue. She notes it would race for an extended period of time relatively fast and then stopped on its own. If you look at her EKGs from last evening at 2100 she has what appears to be a short RP long SD tachycardia at a rate of 142 beats per minute. When she is in sinus rhythm like she is this morning she feels well. She denies any chest pain or chest pressure and she had no chest pain or chest pressure at home. She notes she did not sleep well last night, but she is slowly feeling like she is back to herself. She notes over the last week she thought she was eating relatively well, although she did look dehydrated on her admission labs. She denies any lower extremity edema, symptoms of claudication. She denies any bleeding, bruising, dark stools or black stools on apixaban. As you know, she has chronic thrombocytopenia. The rest of review of systems otherwise negative. PAST MEDICAL HISTORY: 1. Paroxysmal atrial fibrillation. 2. Paroxysmal atrial tachycardia. 3. Polycystic kidney disease. 4. Polycystic liver disease. 5. Hypertension. 6. Hypothyroidism. 7. GERD. 8. History of hyperparathyroidism status post parathyroidectomy, 2 out of 4 parathyroid glands. 9. Heavily calcified splenic artery followed by Dr. Navas. 10. History of hyponatremia. 11. Chronic thrombocytopenia. 12. Polymyalgia rheumatica, on chronic steroids. SOCIAL HISTORY: Denies any tobacco or alcohol. She is . She taught high school math. FAMILY HISTORY: Grandfather had heart attack in his early 70s. She has a sister with atrial fibrillation. ALLERGIES: CONTRAST AND SULFA, INTOLERANCE TO MULTAQ WHICH CAUSES SEVERE HEADACHE. MEDICATIONS: Reviewed in electronic medical record. PHYSICAL EXAMINATION: GENERAL: She is awake, alert, oriented x3. She is in no acute distress this morning. VITAL SIGNS: Her heart rate is 49, her blood pressure 170/75, her pulse ox is 94% on room air. HEAD, EYES, EARS, NOSE, AND THROAT: 2+ carotid upstrokes, no evidence of carotid bruits. Jugular venous pressure appeared normal. Her sclerae is anicteric. Her hearing is normal. LUNGS: Clear to auscultation bilaterally. No rales, rhonchi or wheezing. HEART: Regular rate and rhythm with occasional ectopy. No appreciable murmurs, rubs or gallops. ABDOMEN: Soft, nontender, nondistended. Positive bowel sounds. EXTREMITIES: No clubbing, cyanosis or edema. PSYCHIATRIC: Affect appeared appropriate. DIAGNOSTIC STUDIES: EKGs normal sinus rhythm, ST-T changes, consider lateral ischemia which are not significantly different than her EKGs from the office. EKG 09/24/2016 at 2100 short RP, long SD tachycardia at a rate of 142 beats per minute with subtle ST elevation in the inferior lateral leads. The ST changes are not significantly different compared to her baseline in sinus rhythm. Her econometrics professor was reviewed in detail. LABORATORY STUDIES: Hemoglobin 11.6, platelet count of 75 this morning: Sodium 141, potassium 3.7, BUN 24, creatinine 1.2. Upon admission it was 25 and 1.5 with a sodium of 135. Her TSH is normal. Her troponin 0.05. The second one is 0.85. IMPRESSIONS: 1. Recurrent atrial arrhythmias including what appears to be an atrial tachycardia with a history of atrial fibrillation and atrial tachycardia and her EKG suggesting a short RP, long SD tachycardia. 2. Symptomatic with the short RP long SD tachycardia at 140 beats per minute including lightheadedness, shortness of breath and weakness. 3. Minimal troponin elevation, likely demand ischemia. 4. History of thrombocytopenia with a platelet count this morning on heparin of 75,000. 5. History of polycystic kidney disease and polycystic liver disease followed at the [facility] with concerned that her kidneys are pushing up on her diaphragm causing some degree of pulmonary compression. 6. Hypertension. 7. Bradycardia on carvedilol when in sinus rhythm. I made the following recommendations: 1. Load her with amiodarone 400 mg b.i.d. p.o. and IV drip per protocol. The drip will last for 24 hours, hopefully with loading her with IV amiodarone over 24 hours hopefully this will allow us to maintain sinus rhythm. 2. I would stop her heparin, it seems to be worsening her underlying platelet count. We made a decision with regards to apixaban as she is approaching the age of 82 and she is less than 60 kilograms and her creatinine was as high as 1.5 yesterday. We will have to watch her platelet count closely though given the potential risk of bleeding with AC and her thrombocytopenia. 3. I did read her echocardiogram, she appears of have normal biventricular size and function. There were no obvious regional wall motion abnormalities. She has mild valvular heart disease and her left atrium is moderately dilated. Even if she were to have CAD with her baseline EKG changes, given her labile platelet count and the the need for Plavix and apixaban I would treat any potential CAD with medical therapy. 4. We will stop her carvedilol as well. 5. I did discuss with her that there is a chance that she will have tachybrady syndrome as with her atrial tachycardia it is very fast and when she is in sinus rhythm on carvedilol she is relatively slow, therefore will hold her carvedilol. She may need additional blood pressure medication something like amlodipine, which will not affect her renal function. 6. My only other concern is that she had headaches from Multaq and it is possible she will have some cross reaction to amiodarone. If this were the case, the challenge will be the use of sotalol and Tikosyn and somewhat polycystic kidney disease and underlying renal dysfunction as they are both renally excreted. 7. As an outpatient, she had been on flecainide and flecainide was not maintaining sinus rhythm. Thank you for allowing us to participate in her care. We will continue to follow with you. All this was discussed with the nursing staff. KAVITA
[2016-09-25] MEDS: CALCIUM 600MG + VIT D 400 IU TAB PO SCH (09:46)
[2016-09-25] MEDS: PANTOprazole SOD 40 MG TAB PO SCH (09:46)
[2016-09-25] MEDS: CEROVITE ADV FORMULA TAB PO SCH (09:50)
[2016-09-25] MEDS: APIXABAN 2.5 MG TAB PO SCH ×2 (10:21→21:49)
[2016-09-25] MEDS: AMIODARONE 200 MG TAB PO SCH ×2 (10:21→20:54)
[2016-09-25] MEDS ORDERED: TRAZODONE HCL 50 MG TAB PO PRN (11:00)
[2016-09-25] MEDS: AMIODARONE / D5W 200 ML IV SCH (15:25)
--- NOTE | 2016-09-25 15:32 | Medical Student: [facility] ---
Med Student Progress Note Date of Service September 25, 2016. Subjective Pt evaluation today including: conversation w/ patient, physical exam, chart review, lab review, review of studies Pain: none PO Intake: full diet Voiding: no voiding problems patient reports feeling better overnight. she reports a few episodes of rapid heart rate and palpitations, but otherwise has not felt chest pain or shortness of breath. no new symptoms to report. she would like to be out of the hospital as soon as possible. Review of Systems Constitutional: No chills, No fever Respiratory: No cough, No shortness of breath, No sputum Cardiac: + palpitations, No chest pain, No orthopnea Abdomen: No nausea, No pain Objective Vital Signs Date Time Temp Pulse Resp B/P Pulse Ox O2 Delivery O2 Flow Rate FiO2 09/25/16 12:00 Room Air 09/25/16 11:29 36.8 62 18 122/67 97 Room Air 09/25/16 09:00 136/66 09/25/16 08:00 Room Air 09/25/16 07:21 36.5 49 20 170/75 94 Room Air 09/25/16 04:00 Room Air 09/25/16 03:59 36.7 57 18 138/73 94 Room Air 09/25/16 01:06 36.5 60 18 175/82 Room Air 09/25/16 00:30 121 18 98/67 95 Room Air 09/24/16 23:55 114 19 93 09/24/16 23:54 107/76 09/24/16 23:50 112 16 92 09/24/16 23:46 80/60 09/24/16 23:45 65 13 92 09/24/16 23:40 125 16 95 09/24/16 23:35 124 15 92 09/24/16 23:31 83/63 09/24/16 23:30 127 17 94 09/24/16 23:25 67 16 92 09/24/16 23:20 64 18 94 09/24/16 23:16 101/72 09/24/16 23:15 69 16 94 09/24/16 23:15 66 20 101/72 93 Room Air 09/24/16 23:10 124 17 92 09/24/16 23:05 129 17 93 09/24/16 23:01 115/62 09/24/16 23:00 64 17 93 09/24/16 22:57 128/75 09/24/16 22:55 65 15 93 09/24/16 22:50 64 15 94 09/24/16 22:46 141/77 09/24/16 22:46 62 16 141/77 95 Room Air 09/24/16 22:45 63 19 95 09/24/16 22:40 66 18 141/68 09/24/16 22:30 129 21 92 09/24/16 22:27 116 141/67 09/24/16 22:25 74 15 96 09/24/16 22:24 119 16 141/67 94 Room Air 09/24/16 22:20 114 17 94 09/24/16 22:16 141/67 09/24/16 22:15 71 16 95 09/24/16 22:10 130 15 94 09/24/16 22:09 116 16 133/72 95 Room Air 09/24/16 22:09 133/72 09/24/16 22:05 93 17 94 09/24/16 22:01 103/73 09/24/16 22:00 70 16 93 09/24/16 21:59 69 16 103/73 95 Room Air 09/24/16 21:55 69 19 09/24/16 21:51 156/77 09/24/16 21:50 110 20 96 09/24/16 21:45 123 21 95 09/24/16 21:43 88/65 09/24/16 21:40 77 17 138/73 09/24/16 21:37 94 Room Air 09/24/16 21:35 94 Room Air 09/24/16 21:35 136 19 92 09/24/16 21:30 141 19 99/78 93 09/24/16 21:27 103/71 09/24/16 21:25 145 17 09/24/16 21:20 140 16 09/24/16 21:15 143 09/24/16 21:02 36.3 144 16 115/83 98 Room Air Physical Exam General Appearance: WD/WN, no apparent distress ENT: hearing grossly normal, pharynx normal Neck: supple, no adenopathy, no JVD Respiratory/Chest: chest non-tender, lungs clear, normal breath sounds Cardiovascular: regular rate, rhythm, no edema, no gallop, no murmur Abdomen: normal bowel sounds, non tender, soft Extremities: non-tender, no pedal edema Neurologic/Psychiatric: alert, oriented x 3 Skin: normal color, no rash Laboratory Results Last 24 Hours Test 09/24/16 21:15 09/24/16 21:50 09/24/16 23:50 09/25/16 06:16 White Blood Count 5.62 K/uL 3.46 K/uL Red Blood Count 4.24 M/uL 3.80 M/uL Hemoglobin 13.3 g/dL 11.6 g/dL Hematocrit 38.7 % 34.9 % Mean Corpuscular Volume 91.3 fL 91.8 fL Mean Corpuscular Hemoglobin 31.4 pg 30.5 pg Mean Corpuscular Hemoglobin Concent 34.4 g/dl 33.2 g/dl RDW Standard Deviation 56.5 fL 57.8 fL RDW Coefficient of Variation 16.9 % 17.1 % Platelet Count 99 K/uL 75 K/uL Mean Platelet Volume 11.1 fL 11.4 fL Sodium Level 135 mmol/L 141 mmol/L Potassium Level 4.1 mmol/L 3.7 mmol/L Chloride Level 95 mmol/L 105 mmol/L Carbon Dioxide Level 33 mmol/L 31 mmol/L Anion Gap 7.0 mmol/L 5.0 mmol/L Blood Urea Nitrogen 25 mg/dl 24 mg/dl Creatinine 1.50 mg/dl 1.20 mg/dl Est Creatinine Clear Calc Drug Dose 22.5 ml/min 28.4 ml/min Estimated GFR () 38.0 49.8 Estimated GFR (Non- 32.8 43.0 BUN/Creatinine Ratio 16.8 20.2 Random Glucose 137 mg/dl 84 mg/dl Calcium Level 9.0 mg/dl 7.6 mg/dl Magnesium Level 2.3 mg/dl 2.2 mg/dl Total Bilirubin 0.5 mg/dl Aspartate Amino Transf (AST/SGOT) 37 U/L Alanine Aminotransferase (ALT/SGPT) 39 U/L Alkaline Phosphatase 45 U/L Total Creatine Kinase 99 U/L 70 U/L 87 U/L Creatine Kinase MB 4.9 ng/ml 3.5 ng/ml 4.3 ng/ml Creatine Kinase MB Ratio 4.9 5.0 4.9 Troponin I 0.029 ng/ml 0.050 ng/ml 0.085 ng/ml Total Protein 6.6 gm/dl Albumin 3.7 gm/dl Globulin 2.9 gm/dl Albumin/Globulin Ratio 1.3 Thyroid Stimulating Hormone (TSH) 2.810 uIu/ml Prothrombin Time 11.5 SECONDS 11.7 SECONDS Prothromb Time International Ratio 1.1 1.1 Activated Partial Thromboplast Time 25.5 SECONDS 60.6 SECONDS Partial Thromboplastin Ratio 1.0 2.3 Neutrophils (%) (Auto) 57.8 % Lymphocytes (%) (Auto) 30.6 % Monocytes (%) (Auto) 10.4 % Eosinophils (%) (Auto) 0.9 % Basophils (%) (Auto) 0.3 % Neutrophils # (Auto) 2.00 K/uL Lymphocytes # (Auto) 1.06 K/uL Monocytes # (Auto) 0.36 K/uL Eosinophils # (Auto) 0.03 K/uL Basophils # (Auto) 0.01 K/uL Immature Granulocyte % (Auto) 0.0 % Immature Granulocyte # (Auto) 0.00 K/uL Estimated Average Glucose 123 mg/dl Hemoglobin A1c 5.9 % Medications Current Inpatient Medications Medications (Trade) Dose Ordered Sig/Dawn Route Start Time Stop Time Status Last Admin Dose Admin Ondansetron HCl 4 mg 4 mg Q6H PRN IV 09/24/16 23:30 10/24/16 23:29 Sodium Chloride (Nss 1000ml) 1,000 ml @ 80 mls/hr [id number] IV 09/25/16 01:45 10/25/16 01:44 09/25/16 14:24 80 MLS/HR Acetaminophen (Tylenol Tab) 650 mg Q4H PRN PO 09/25/16 00:30 10/25/16 00:29 Nitroglycerin (Nitrostat Tab) 0.4 mg UD PRN SL 09/25/16 00:30 10/25/16 00:29 Calcium/Vitamin D (Caltrate Plus Tab) 1 tab DAILY PO 09/25/16 09:00 10/25/16 08:59 09/25/16 09:46 1 TAB Levothyroxine Sodium (Synthroid Tab) 75 mcg DAILYBB PO 09/25/16 06:00 10/25/16 05:59 09/25/16 06:20 75 MCG Multivitamins/ Minerals (Multivitamin W/ Minerals Tab) 1 tab DAILY PO 09/25/16 09:00 10/25/16 08:59 09/25/16 09:50 1 TAB Clobetasol Propionate (Clobetasol Propionate Oint) 1 appln PRN PRN EXT 09/25/16 00:30 10/25/16 00:29 Prednisone (PredniSONE TAB) 10 mg BID PO 09/25/16 09:00 10/25/16 08:59 09/25/16 09:46 10 MG Pantoprazole Sodium (Protonix Tab) 40 mg QAM PO 09/25/16 09:00 10/25/16 08:59 09/25/16 09:46 40 MG Metoprolol Tartrate (Lopressor Iv) 5 mg Q4 PRN IV 09/25/16 00:30 10/25/16 00:29 Amiodarone HCl (Cordarone Tab) 400 mg BID PO 09/25/16 10:00 10/25/16 09:59 09/25/16 10:21 400 MG Apixaban 2.5 mg 2.5 mg BID PO 09/25/16 10:00 10/25/16 09:59 09/25/16 10:21 2.5 MG Amiodarone HCL/ Dextrose (Nexterone / D5w) 200 ml @ 16.7 mls/hr [id number] IV 09/25/16 15:10 10/25/16 15:09 Trazodone HCl (Desyrel Tab) 25 mg HS PRN PO 09/25/16 11:00 10/25/16 10:59 Assessment and Plan Assessment and Plan: This is a 81 yo female with a history of atrial fibrillation who presented in afib with RVR 1. Atrial fibrillation -Was scheduled for cardioversion but was in nsr when she went to her appointment. -Had been rate controlled with carvedilol 6.25 mg consider stating cardiology made this decision, or that you did discuss with them -D/c carvedilol -Loaded with amiodarone this morning -Elevated troponins likely due to demand ischemia (echocardiogram normal) -Will give amiodarone 400 mg po bid for rate/rhythm control of afib -Rate/rhythm have been mildly bradycardic but regular on tele, with a few non -sustained runs of afib -Metoprolol 5 mg po prn for sustained HR >110 -Apixaban 2.5 mg po daily for anticoagulation 2. Hypothyroid -Continue synthroid 75 mcg po daily 3. GI prophylaxis: -pantoprazole 40 mg po daily 4. DVT prophylaxis: -apixaban 2.5 mg 5. Disposition: -Will monitor on tele overnight to make sure amiodarone is controlling her afib well -Barring any acute events, consider discharge tomorrow. consider not using numbers incase of editing and you need to put a new number in the middle and then renumber all after that, as if an acute problem arose to be a new #1 Continued [facility] stay due to: multiple IV medications needed Discharge planning: home
[2016-09-25 15:55] LABS: CKMB/CK RATIO 5.6 (0-3.0)
--- NOTE | 2016-09-25 17:06 | Progress Note ---
Subjective Date of Service: September 25, 2016. Subjective This pt feels well and has no further symptoms, was changed to amiodarone by cardiology Problem List Medical Problems: (1) Atrial flutter with rapid ventricular response Status: Acute (2) Hypotension Status: Acute Review of Systems Constitutional: No chills, No fever, No weakness Respiratory: No cough, No shortness of breath Cardiac: No chest pain, No edema Abdomen: No diarrhea, No nausea, No pain, No vomiting Female : No dysuria, No urinary frequency Objective Vital Signs Date Time Temp Pulse Resp B/P Pulse Ox O2 Delivery O2 Flow Rate FiO2 09/25/16 07:21 36.5 49 20 170/75 94 Room Air 09/25/16 04:00 Room Air 09/25/16 03:59 36.7 57 18 138/73 94 Room Air 09/25/16 01:06 36.5 60 18 175/82 Room Air 09/25/16 00:30 121 18 98/67 95 Room Air 09/24/16 23:55 114 19 93 09/24/16 23:54 107/76 09/24/16 23:50 112 16 92 09/24/16 23:46 80/60 09/24/16 23:45 65 13 92 09/24/16 23:40 125 16 95 09/24/16 23:35 124 15 92 09/24/16 23:31 83/63 09/24/16 23:30 127 17 94 09/24/16 23:25 67 16 92 09/24/16 23:20 64 18 94 09/24/16 23:16 101/72 09/24/16 23:15 69 16 94 09/24/16 23:15 66 20 101/72 93 Room Air 09/24/16 23:10 124 17 92 09/24/16 23:05 129 17 93 09/24/16 23:01 115/62 09/24/16 23:00 64 17 93 09/24/16 22:57 128/75 09/24/16 22:55 65 15 93 09/24/16 22:50 64 15 94 09/24/16 22:46 141/77 09/24/16 22:46 62 16 141/77 95 Room Air 09/24/16 22:45 63 19 95 09/24/16 22:40 66 18 141/68 09/24/16 22:30 129 21 92 09/24/16 22:27 116 141/67 09/24/16 22:25 74 15 96 09/24/16 22:24 119 16 141/67 94 Room Air 09/24/16 22:20 114 17 94 09/24/16 22:16 141/67 09/24/16 22:15 71 16 95 09/24/16 22:10 130 15 94 09/24/16 22:09 116 16 133/72 95 Room Air 09/24/16 22:09 133/72 09/24/16 22:05 93 17 94 09/24/16 22:01 103/73 09/24/16 22:00 70 16 93 09/24/16 21:59 69 16 103/73 95 Room Air 09/24/16 21:55 69 19 09/24/16 21:51 156/77 09/24/16 21:50 110 20 96 09/24/16 21:45 123 21 95 09/24/16 21:43 88/65 09/24/16 21:40 77 17 138/73 09/24/16 21:37 94 Room Air 09/24/16 21:35 94 Room Air 09/24/16 21:35 136 19 92 09/24/16 21:30 141 19 99/78 93 09/24/16 21:27 103/71 09/24/16 21:25 145 17 09/24/16 21:20 140 16 09/24/16 21:15 143 09/24/16 21:02 36.3 144 16 115/83 98 Room Air Physical Exam General Appearance: WD/WN, + mild distress Neck: supple, no JVD Respiratory/Chest: chest non-tender, lungs clear, normal breath sounds Cardiovascular: regular rate, rhythm (has converted), no murmur Abdomen: normal bowel sounds, non tender, soft Extremities: no pedal edema, no calf tenderness Neurologic/Psychiatric: alert, oriented x 3 Laboratory Results Last 24 Hours Test 09/24/16 21:15 09/24/16 21:50 09/24/16 23:50 09/25/16 06:16 White Blood Count 5.62 K/uL 3.46 K/uL Red Blood Count 4.24 M/uL 3.80 M/uL Hemoglobin 13.3 g/dL 11.6 g/dL Hematocrit 38.7 % 34.9 % Mean Corpuscular Volume 91.3 fL 91.8 fL Mean Corpuscular Hemoglobin 31.4 pg 30.5 pg Mean Corpuscular Hemoglobin Concent 34.4 g/dl 33.2 g/dl RDW Standard Deviation 56.5 fL 57.8 fL RDW Coefficient of Variation 16.9 % 17.1 % Platelet Count 99 K/uL 75 K/uL Mean Platelet Volume 11.1 fL 11.4 fL Sodium Level 135 mmol/L 141 mmol/L Potassium Level 4.1 mmol/L 3.7 mmol/L Chloride Level 95 mmol/L 105 mmol/L Carbon Dioxide Level 33 mmol/L 31 mmol/L Anion Gap 7.0 mmol/L 5.0 mmol/L Blood Urea Nitrogen 25 mg/dl 24 mg/dl Creatinine 1.50 mg/dl 1.20 mg/dl Est Creatinine Clear Calc Drug Dose 22.5 ml/min 28.4 ml/min Estimated GFR () 38.0 49.8 Estimated GFR (Non- 32.8 43.0 BUN/Creatinine Ratio 16.8 20.2 Random Glucose 137 mg/dl 84 mg/dl Calcium Level 9.0 mg/dl 7.6 mg/dl Magnesium Level 2.3 mg/dl 2.2 mg/dl Total Bilirubin 0.5 mg/dl Aspartate Amino Transf (AST/SGOT) 37 U/L Alanine Aminotransferase (ALT/SGPT) 39 U/L Alkaline Phosphatase 45 U/L Total Creatine Kinase 99 U/L 70 U/L 87 U/L Creatine Kinase MB 4.9 ng/ml 3.5 ng/ml 4.3 ng/ml Creatine Kinase MB Ratio 4.9 5.0 4.9 Troponin I 0.029 ng/ml 0.050 ng/ml 0.085 ng/ml Total Protein 6.6 gm/dl Albumin 3.7 gm/dl Globulin 2.9 gm/dl Albumin/Globulin Ratio 1.3 Thyroid Stimulating Hormone (TSH) 2.810 uIu/ml Prothrombin Time 11.5 SECONDS 11.7 SECONDS Prothromb Time International Ratio 1.1 1.1 Activated Partial Thromboplast Time 25.5 SECONDS 60.6 SECONDS Partial Thromboplastin Ratio 1.0 2.3 Neutrophils (%) (Auto) 57.8 % Lymphocytes (%) (Auto) 30.6 % Monocytes (%) (Auto) 10.4 % Eosinophils (%) (Auto) 0.9 % Basophils (%) (Auto) 0.3 % Neutrophils # (Auto) 2.00 K/uL Lymphocytes # (Auto) 1.06 K/uL Monocytes # (Auto) 0.36 K/uL Eosinophils # (Auto) 0.03 K/uL Basophils # (Auto) 0.01 K/uL Immature Granulocyte % (Auto) 0.0 % Immature Granulocyte # (Auto) 0.00 K/uL Assessment and Plan 81 F with palpitations Afib rvr , converted to sinus, consult cardiology decided to start amiodarone as has issues in past with afib rvr, monitor while starting amiodarone acute renal failure Hold furosemide. Thrombocytopenia--99 upon admission. Hyperglycemia-pending hemoglobin A1c. Hypothyroidism--continue levothyroxine sodium at 75 g by mouth daily. Chronic Prednisone use--adrenal suppression, will have increased oral prednisone
[2016-09-26 00:29] VITALS: BP 130/67; PULSE 60; TEMP 36.6; O2SAT 94
[2016-09-26] MEDS: SODIUM CHLORIDE 0.9% 1000ML 1,000 ML IV SCH (02:34)
[2016-09-26] MEDS: AMIODARONE / D5W 200 ML IV SCH (02:34)
[2016-09-26] MEDS: LEVOTHYROXINE 75 MCG TAB PO SCH (05:18)
[2016-09-26 06:43] LABS: HEMATOCRIT 35.4 % (37-47); MEAN CELL VOLUME 91.5 fL (80-100); MEAN CORPUSCULAR HEMOGLOBIN 30.5 pg (25-34); MEAN CORPUSCULAR HGB CONC 33.3 g/dl (32-36); RED BLOOD COUNT 3.87 M/uL (4.2-5.4); WHITE BLOOD COUNT 3.27 K/uL (4.8-10.8)
[2016-09-26 06:52] LABS: COMPLETE YES; IG% 0.3 %; INR 1.1 (0.9-1.1); LYMPH % 13.8 %; LYMPH ABS # 0.45 K/uL (1.2-3.4); MEAN PLATELET VOLUME 11.5 fL (7.4-10.4); MONO % 3.7 %; NEUT % 82.2 %; PLATELET COUNT 70 K/uL (130-400); PROTHROMBIN TIME (PATIENT) 11.6 SECONDS (9.0-12.0)
[2016-09-26 07:14] LABS: BUN/CREATININE RATIO 16.6 (10-20); CALCIUM 7.1 mg/dl (8.5-10.1); CREATININE 1.2 mg/dl (0.60-1.20); MAGNESIUM 2.1 mg/dl (1.8-2.4); POTASSIUM 3.7 mmol/L (3.5-5.1)
[2016-09-26 07:31] VITALS: BP 155/108; PULSE 68; TEMP 36.7; O2SAT 94
--- NOTE | 2016-09-26 08:58 | Cardiology Follow-Up ---
Subjective General Date of Service: September 26, 2016. Pt evaluation today including: conversation w/ patient, chart review, lab review, review of studies History of Present Illness The patient is a 81 year old female Allergies Coded Allergies: Iodinated Contrast Media (Verified Allergy, Unknown, 0, 08/28/09) Sulfa Drugs (Verified Allergy, Unknown, 0, 08/28/09) Social History Smoking Status: Never Smoker Hx Alcohol Use - Type And Amou: No Hx Substance Use - Type And Am: No Problem List Medical Problems: (1) Atrial flutter with rapid ventricular response Status: Acute (2) Hypotension Status: Acute Review of Systems Respiratory: No cough, No dyspnea at rest, No shortness of breath Cardiac: No chest pain, No edema, No palpitations Additional ROS Details: Feels much better. Looking forward to going home. Physical Exam Vital Signs Last Vital Signs Documentation Date Time Temp Pulse Resp B/P Pulse Ox O2 Delivery O2 Flow Rate FiO2 09/26/16 07:31 36.7 68 16 155/108 94 Room Air Physical Exam Constitutional: General Apperance: heathly-appearing Level of Distress: NAD Lungs: Respiratory effort: no dyspnea Auscultation: breath sounds normal, no wheezing, no rales/crackles, no rhonchi Cardiovascular: Heart Auscultation: RRR, no murmurs, no rubs, no gallops Abdomen: Bowel Sounds: normal Inspection & Palpation: soft, non-distended, no tenderness, guarding & rebound Extremities: no edema Assessment and Plan Assessment and Plan IMPRESSIONS: 1. Recurrent atrial arrhythmias including what appears to be an atrial tachycardia with a history of atrial fibrillation and atrial tachycardia and her EKG suggesting a short RP, long VT tachycardia. 2. Symptomatic with the short RP long VT tachycardia at 140 beats per minute including lightheadedness, shortness of breath and weakness. 3. Minimal troponin elevation, likely demand ischemia. 4. History of thrombocytopenia with a platelet count this morning on heparin of 70,000. 5. History of polycystic kidney disease and polycystic liver disease followed at the [facility] with concerned that her kidneys are pushing up on her diaphragm causing some degree of pulmonary compression. 6. Hypertension. 7. Bradycardia on carvedilol when in sinus rhythm. Ok to go Home D/C amio drip Home on Norvasc 2.5mg daily (avoid carvedilol due to potential bradycardia) for BP Amio 400mg BID x 4 more days then 400mg daily for a month then 200mg daily Apixaban 2.5mg BID CBC in one week Laboratory Results Last 24 Hours Test 09/25/16 15:26 09/26/16 05:28 Total Creatine Kinase 57 U/L Creatine Kinase MB 3.2 ng/ml Creatine Kinase MB Ratio 5.6 Troponin I 0.046 ng/ml White Blood Count 3.27 K/uL Red Blood Count 3.87 M/uL Hemoglobin 11.8 g/dL Hematocrit 35.4 % Mean Corpuscular Volume 91.5 fL Mean Corpuscular Hemoglobin 30.5 pg Mean Corpuscular Hemoglobin Concent 33.3 g/dl Platelet Count 70 K/uL Mean Platelet Volume 11.5 fL Neutrophils (%) (Auto) 82.2 % Lymphocytes (%) (Auto) 13.8 % Monocytes (%) (Auto) 3.7 % Eosinophils (%) (Auto) 0.0 % Basophils (%) (Auto) 0.0 % Neutrophils # (Auto) 2.69 K/uL Lymphocytes # (Auto) 0.45 K/uL Monocytes # (Auto) 0.12 K/uL Eosinophils # (Auto) 0.00 K/uL Basophils # (Auto) 0.00 K/uL RDW Standard Deviation 58.3 fL RDW Coefficient of Variation 17.2 % Immature Granulocyte % (Auto) 0.3 % Immature Granulocyte # (Auto) 0.01 K/uL Prothrombin Time 11.6 SECONDS Prothromb Time International Ratio 1.1 Activated Partial Thromboplast Time 26.1 SECONDS Partial Thromboplastin Ratio 1.0 Sodium Level 140 mmol/L Potassium Level 3.7 mmol/L Chloride Level 105 mmol/L Carbon Dioxide Level 29 mmol/L Anion Gap 6.0 mmol/L Blood Urea Nitrogen 20 mg/dl Creatinine 1.20 mg/dl Est Creatinine Clear Calc Drug Dose 28.9 ml/min Estimated GFR () 49.8 Estimated GFR (Non- 43.0 BUN/Creatinine Ratio 16.6 Random Glucose 99 mg/dl Calcium Level 7.1 mg/dl Magnesium Level 2.1 mg/dl
[2016-09-26] MEDS ORDERED: AMLODIPINE BESYLATE 5 MG TAB PO SCH (09:00)
[2016-09-26] MEDS: APIXABAN 2.5 MG TAB PO SCH (09:10)
[2016-09-26] MEDS: CEROVITE ADV FORMULA TAB PO SCH (09:11)
[2016-09-26] MEDS: PANTOprazole SOD 40 MG TAB PO SCH (09:11)
[2016-09-26] MEDS: CALCIUM 600MG + VIT D 400 IU TAB PO SCH (09:11)
[2016-09-26] MEDS: AMIODARONE 200 MG TAB PO SCH (09:11)
[2016-09-26] MEDS ORDERED: CRD200 PO (10:19)
--- NOTE | 2016-09-26 10:20 | Discharge Instructions ---
Discharge Instructions Date of Service September 26, 2016. Admission Reason for Admission: Acs, Sinus Brachycardia-Tachycardia Syndrome Discharge Discharge Diagnosis / Problem: atrial fibrillation Discharge Goals Goal(s): Diagnostic testing, Therapeutic intervention Activity Recommendations Activity Limitations: resume your previous activity . Current Hospital Diet Patient's current hospital diet: AHA Diet (Heart Healthy), Diabetes Type 2 Diet Discharge Diet Recommended Diet: Regular Diet Pending Studies Studies pending at discharge: no Laboratory Results Hemoglobin A1c Test 09/25/16 06:16 Range/Units Estimated Average Glucose 123 mg/dl Hemoglobin A1c 5.9 H 4.5-5.6 % Medical Emergencies . Who to Call and When: Medical Emergencies: If at any time you feel your situation is an emergency, please call 911 immediately. . Non-Emergent Contact Non-Emergency issues call your: Tooling Specialist Call Non-Emergent contact if: temperature is above 101, your pain is unusual for you . . "Provider Documentation" section prepared by Rob Gordon. . VTE Core Measure Inpt VTE Proph given/why not?: Other Anticoagulation (heparin IV standard dose per weight-based protocol.)
[2016-09-26 10:30] VITALS: BP 155/108; PULSE 68; TEMP 36.7; O2SAT 94
--- NOTE | 2016-09-26 16:33 | Discharge Summary ---
Discharge Summary Date of Service September 26, 2016. Discharge Summary Admission Date: September 25, 2016 at 00:17 Discharge Date: September 26, 2016 Discharge Disposition: Home Principal Diagnosis: afib rvr now nsr Immunizations: Have You Had Influenza Vaccine: Yes History of Tetanus Vaccine?: Yes Tetanus Immunization Date: Aug 28, 2006 History of Pneumococcal: Yes History of Hepatitis B Vaccine: Unknown Procedures: echo preserved EF with LA enlargement Consultations: Dr Hu Medication Reconciliation New Medications: Amiodarone HCl (Amiodarone HCl) 200 Mg Tab 400 MG PO UD, #60 TAB 400mg 2x's a day x 4 days then 400mg a day Continued Medications: Apixaban (Eliquis) 2.5 Mg Tab 2.5 MG PO BID, TAB Calcium Carbonate-Vitamin D W/ (Caltrate 600 Plus) 1 Tab Tab 1 TAB PO DAILY, TAB Clobetasol Propionate (Clobetasol Propionate) 45 Appln/15 Gm Oint 1 APPLN TOP UD for 30 Days, #60 GM 2 Refills Furosemide (Lasix) 20 Mg Tab 40 MG PO MWF, TAB Furosemide (Lasix) 20 Mg Tab 20 MG PO 4XWK, TAB TAKE SUN, TUES, THUR, SAT Levothyroxine Sodium (Synthroid) 75 Mcg Tab 75 MCG PO DAILY, TAB Multivitamins/Minerals (Mvi With Minerals) Tab 1 TAB PO DAILY, TAB Omeprazole (Prilosec) 20 Mg Capcr 20 MG PO DAILY, CAP Prednisone (Prednisone) 5 Mg Tab 10 MG PO Q2D, TAB Prednisone (Prednisone) 5 Mg Tab 7.5 MG PO Q2D, TAB Zoledronic Acid (Reclast) 5 Mg/100 Ml Inj 1 DOSE INJ YEARLY Discontinued Medications: Carvedilol (Coreg) 6.25 Mg Tab 6.25 MG PO BID, TAB Discharge Exam Review of Systems: Constitutional: No chills, No fever Respiratory: No cough, No sputum Cardiovascular: No chest pain, No edema, No orthopnea Abdomen: No nausea, No pain, No vomiting Physical Exam: General Appearance: WD/WN, no apparent distress Neck: supple, no JVD Respiratory/Chest: chest non-tender, lungs clear, normal breath sounds Cardiovascular: regular rate, rhythm, no murmur Abdomen / GI: normal bowel sounds, non tender, soft Extremities: no pedal edema, normal range of motion Hospital Course 81 F with palpitations Afib rvr , converted to sinus, consult cardiology decided to start amiodarone as has issues in past with afib rvr, amiodarone 400mg bid for 4 days then once a day for one week then as determined by cardiology acute renal failure resolved resume home lasix also for bp control . Thrombocytopenia--99 upon admission. Hyperglycemia- hemoglobin A1c. 5.9 Hypothyroidism--continue levothyroxine sodium at 75 g by mouth daily. Chronic Prednisone use-resume oral prednisone Total Time Spent: Greater than 30 minutes This includes examination of the patient, discharge planning, medication reconciliation, and communication with other providers. Discharge Instructions Please refer to the electronic Patient Visit Report (Discharge Instructions) for additional information.
== END 2016-09-26 11:33 | disposition home or self-care (01) | DRG 309 ==
LOC: ENRESERVTM → ENRESERVDT → C.EDB 20:55 → C.2E 09-25 00:17
PROVIDERS: ADMIT Hospitalist; ATTEND Internal Medicine
DX: I48.0 Paroxysmal atrial fibrillation (principal); N17.9 Acute kidney failure, unspecified; Q61.3 Polycystic kidney, unspecified; Q44.6 Cystic disease of liver; I49.5 Sick sinus syndrome; E03.9 Hypothyroidism, unspecified; R73.9 Hyperglycemia, unspecified; K21.9 Gastro-esophageal reflux disease without esophagitis; I10 Essential (primary) hypertension; D69.6 Thrombocytopenia, unspecified; Z79.01 Long term (current) use of anticoagulants; Z79.52 Long term (current) use of systemic steroids; Z79.899 Other long term (current) drug therapy; Z91.041 Radiographic dye allergy status; Z88.2 Allergy status to sulfonamides; Z88.8 Allergy status to other drugs, medicaments and biological substances; M35.3 Polymyalgia rheumatica

== ENCOUNTER → 2017-05-29 | Outpatient (CLI) | payer BC ==
[~2017-05-29] MED LIST changes: +APIX1TAB PO; -ASPCH81X PO; -BNC/20125 PO; -CALCIUM + D600 M1 PO; +CALCTAB7 PO; +CLBPO15 TOP; +CRD200 PO; -FISH OI1 OR; -FLEC50TA20 PO; +FURO-85 PO; +LEVO75TA PO; -LRT5 PO; -METO25TA3 OR; +MULT-513 PO; -OMEP40CA41 OR; +PRED-301 PO; +PRLSR20 PO; -SYN75 PO; +ZOLE5INJ INJ; -[UNRECOGNIZED DRUG - OTHER] PO
--- NOTE | 2017-05-29 15:54 | MAMMOGRAPHY REPORT ---
BILATERAL DIGITAL SCREENING MAMMOGRAM TOMOSYNTHESIS WITH CAD: 05/29/2017 CLINICAL HISTORY: Routine screening. Patient has no complaints. TECHNIQUE: Breast tomosynthesis in addition to standard 2D mammography was performed. Current study was also evaluated with a Computer Aided Detection (CAD) system. COMPARISON: Comparison is made to exams dated: 01/16/2016 ultrasound, 01/16/2016 mammogram, 05/27/2016 ma mmogram, 05/20/2014 mammogram, 05/26/2015 mammogram, and 05/19/2013 mammogram - [facility] er. BREAST COMPOSITION: The tissue of both breasts is heterogeneously dense, which may obscure small mas ses. FINDINGS: No suspicious masses, calcifications, or areas of architectural distortion are noted in ei ther breast. There has been no significant interval change compared to prior exams. Bilateral benign -appearing calcifications are not significantly changed. IMPRESSION: ACR BI-RADS CATEGORY 2: BENIGN There is no mammographic evidence of malignancy. A 1 year screening mammogram is recommended. The pa tient will receive written notification of the results. Approximately 10% of breast cancers are not detected with mammography. A negative mammographic report should not delay biopsy if a clinically suggestive mass is present. Pamela Fregoso M.D. /:05/29/2017 12:23:50 Senior Project Coordinator: Mary SALCEDO(Jose)(M), [facility] letter sent: Normal 1/2 BI-RADS Code: ACR BI-RADS Category 2: Benign
== END | disposition home or self-care (01) ==
LOC: C.MAMM 11:20
PROVIDERS: ATTEND Obstetrics & Gynecology
DX: Z12.31 Encounter for screening mammogram for malignant neoplasm of breast (principal)

== ENCOUNTER → 2017-07-17 | Outpatient (CLI) | payer BC | END | disposition home or self-care (01) | LOC: C.MAMM 09:44 | PROVIDERS: ATTEND Family Medicine | DX: M81.0 Age-related osteoporosis without current pathological fracture (principal); M85.89 Other specified disorders of bone density and structure, multiple sites ==

== ENCOUNTER → 2017-09-12 | Outpatient (CLI) | payer BC | END | disposition home or self-care (01) | LOC: C.LAB1850 15:28 | PROVIDERS: ATTEND Internal Medicine Rheumatology | DX: M81.0 Age-related osteoporosis without current pathological fracture (principal); K21.0 Gastro-esophageal reflux disease with esophagitis; Z98.890 Other specified postprocedural states; E55.9 Vitamin D deficiency, unspecified ==